=== PATIENT | female | born 1945 | race Caucasian/White ===

== ENCOUNTER → 2024-02-20 10:06 | Outpatient (REF) | payer MEDICARE, OTHER, SELFPAY | LOC: RAD 10:06 | PROVIDERS: ATTENDING PHYSICIAN Student in an Organized Health Care Education/Training Program | DX: R05.9 Cough, unspecified (principal) | CPT/HCPCS: 71046 ==

== ENCOUNTER → 2024-04-30 09:04 | Outpatient (REF) | payer MEDICARE, OTHER, SELFPAY | LOC: RAD 09:04 | PROVIDERS: ATTENDING PHYSICIAN Orthopaedic Surgery; FAMILY PHYSICIAN Physician Assistant Medical | DX: M25.562 Pain in left knee (principal) | CPT/HCPCS: 78315; A9503 ==

== ENCOUNTER 2024-07-26 18:35 | Emergency (ER) | payer MEDICARE, OTHER, SELFPAY ==
[2024-07-26 18:39] VITALS: BP 168/103
[2024-07-26 19:02] LABS: % Basophils 1.1 % (0-2); % Eosinophils 3.4 % (0-6); % Immature Granulocytes 0.5 % (0-0.5); % Lymphocytes 29.6 % (20.5-51.1); % Monocytes 8.9 % (1.7-9.3); % Neutrophils 56.5 % (42.2-75.2); Absolute Basophils 0.1 10^3/uL (0-0.2); Absolute Eosinophils 0.3 10^3/uL (0-0.7); Absolute Lymphocytes 2.3 10^3/uL (1.2-3.4); Absolute Monocytes 0.7 10^3/uL (0.1-0.6); Absolute Neutrophils 4.4 10^3/uL (1.4-6.5); Mean Corp Hgb Conc. 34.1 g/dL (33.0-37.0); Mean Corpuscular Hgb 33.7 pg (27.0-31.0); Mean Corpuscular Volume 98.6 fL (81.0-99.0); Mean Platelet Volume 9.1 fL (7.4-10.4); Nucleated Red Blood Cells % 0 %; Platelet Count 198 10^3/uL (130-400); Red Blood Cell Count 4.16 10^6/uL (4.20-5.40); Red Cell Dist. Width 12.2 % (11.5-14.5); Urine Albumin 1+ (Neg - Trace); Urine Bilirubin Negative (Negative); Urine Character Slightly Cloudy (Clear); Urine Color Yellow; Urine Glucose Negative (Negative); Urine Ketone Trace (Negative); Urine Leukocyte Trace (Negative); Urine Nitrite Positive (Negative); Urine Occult Blood 4+ (Negative); Urine Urobilinogen 1+ (Neg - 1+); White Blood Cell Count 7.8 10^3/uL (4.8-10.8)
[2024-07-26 19:07] LABS: Urine Bacteria Many (Negative); Urine Red Blood Cell >100 /HPF (0-2); Urine White Cell 0-2 /HPF (0-5)
[2024-07-26 19:14] LABS: ALT (SGPT) 28 U/L (0-35); AST (SGOT) 35 U/L (14-36); Albumin 4.6 g/dl (3.5-5.0); Alkaline Phosphatase 83 U/L (38-126); Blood Urea Nitrogen 18 mg/dl (7-17); Carbon Dioxide 23 mmol/L (22-30); Chloride 105 mmol/L (98-107); Glucose 99 mg/dl (70-99); Potassium 4.2 mmol/L (3.5-5.1); Sodium 139 mmol/L (135-145); Total Bilirubin 0.7 mg/dl (0.2-1.3); Total Protein 7.4 g/dl (6.3-8.2); eGFR > 60.00
[2024-07-26 19:53] VITALS: BMI 25.5
--- NOTE | 2024-07-26 20:26 | ED.GENMED ---
History of Present Illness
General
Chief Complaint: Flank Pain
Time Seen by Provider: 07/26/24 19:54
History of Present Illness
History of Present Illness:
78-year-old female presents to the emergency department for evaluation of sudden onset left flank pain that began 2 hours prior to arrival. Pain maximized upon arrival to the ED but has since resolved. She denies any symptoms at present. She did
have 2 episodes of vomiting previously. No hematuria. No prior history of kidney stone.
Past History
Past History
ED Past Medical History: Hypothyroidism
ED Past Surgical History: Orthopedic and Other (cataract surgery)
Social History
Tobacco: Non-smoker
Alcohol: None
Drug: None
Personal:
Living: with family
Employment: Retired
Family History
Family History: Other
Review of Systems
Review of Systems
Allergies reviewed?: Yes
All Other Systems: ROS reviewed and negative except as documented in HPI and ROS
Phy Exam
Physical Exam
Physical Exam:
GEN: Well appearing, NAD, WDWN
HEENT: Oral mucosa moist, no scleral icterus
Cardiac: Regular rate
Lung: No respiratory distress, no tachypnea
MSK: No gross deformity or injuries
Skin: Good color, no pallor or jaundice, no rashes
Neuro: AO x3, moves all extremities freely
Psych: Calm, cooperative
Course
Orders/Labs/Results
Orders:
Orders
07/26/24 18:52
CBC/With Diff [Complete Blood Count/With Diff] Urgent
Comprehensive Metabolic Panel Urgent
Urinalysis Reflex To Culture Urgent
Date Specimen was Collected: 07/26/24
Time Specimen was Collected: 18:41
Urine Microscopic Reflex Cult Urgent
Urine Culture Urgent
PHIL Source: U
Specimen Description:
Date Specimen was Collected: 07/26/24
Time Specimen was Collected: 18:41
07/26/24 19:58
CT Abd/pel Without Iv Or Oral Urgent
Comment:
Reason For Exam: L flank pain
Abnormal Lab Results
07/26/24
18:52
RBC 4.16 L 10^6/uL
(4.20-5.40)
MCH 33.7 H pg
(27.0-31.0)
Absolute Monos (auto) 0.7 H 10^3/uL
(0.1-0.6)
BUN 18 H mg/dl
(7-17)
Urine Ketones Trace A
(Negative)
Ur Occult Blood Reflex 4+ A
(Negative)
Urine Nitrite (Reflex) Positive A
(Negative)
Leukocyte Esterase Rfl Trace A
(Negative)
Urine RBC >100 A /HPF
(0-2)
Urine Bacteria (Reflex) Many A
(Negative)
Urine Albumin (Reflex) 1+ A
(Neg - Trace)
07/26/24 18:52
07/26/24 18:52
Vital Signs
Initial and Last Documented VS:
Initial Vital Signs
Temp Pulse Resp BP Pulse Ox
97.5 F 73 16 168/103 100
07/26/24 18:39 07/26/24 18:39 07/26/24 18:39 07/26/24 18:39 07/26/24 18:39
Last Documented Vital Signs
Temp Pulse Resp BP Pulse Ox
97.5 F 64 20 126/65 95
07/26/24 18:39 07/26/24 20:50 07/26/24 20:50 07/26/24 20:50 07/26/24 20:50
MDM/Problems Addressed
MDM/Problems Addressed:
Patient remained pain-free in the ED, most likely a passed kidney stone. Urinalysis shows large RBCs and bacteria but no white cells and she has no lower urinary tract voiding symptoms suggestive of acute UTI, will await culture no antibiotics
necessary at this time however would consider treatment if urine culture is consistent with UTI. Suitable for outpatient management
*Critical Care Note
Total Time (30-74mins, 75-104mins- exclusive of procedures): Not Applicable
ED Attending Note
-
Portions of this chart may have been created with voice recognition software.� Occasional wrong word or��sound alike� substitutions may have occurred due to the inherent limitations of voice recognition software.
Discharge Plan
Departure
Patient Disposition: Home (Routine Discharge)
Date of Disposition: 07/26/24
Time of Disposition: 21:39
Patient with high blood pressure during this ER visit?: No
Discharge Problem:
Acute left flank pain
Instructions: Kidney Stones (DC)
Prescriptions:
No Action
levothyroxine [Synthroid] 100 MCG tablet
100 mcg PO DAILY
rosuvastatin 5 MG tablet
5 mg PO QPM
Glucosamine Sulf-Chondroitin 1 EACH capsule
1 cap PO DAILY
Multi-Vitamins
1 tab PO DAILY
Aleve
2 tab PO DAILY
albuterol sulfate [ProAir HFA] 90 mcg/actuation Hfa Aerosol Inhaler
2 puff INHALATION Q4HPRN PRN (Reason: shortness of breath/cough) Qty: 90 0RF
Rx Instructions:
Dispense with spacer
Referrals:
Mayra Jules PA [Family Provider] -
Activity Restrictions/Additional Instructions:
Your urine sample had a large amount of bacteria, however this does not necessarily indicate a UTI. As you have no UTI symptoms, we will wait for your urine culture to result before starting antibiotics
Interventions
Interventions:
*Risk Screen - Suicide Last Done: 07/26/24 18:39
*General Assessment Last Done: 07/26/24 19:56
*Neglect/Abuse Screening Last Done: 07/26/24 18:39
ED- Fall Risk Assessment Last Done: 07/26/24 19:56
*ED COVID-19 Vaccine History Last Done: 07/26/24 19:56
*Nursing Disposition Last Done: 07/26/24 22:13
HB-Tjmxjo-Fkcsuzwbes Assessment Last Done: 07/26/24 19:56
ED-Female Genitourinary Assessment Last Done: 07/26/24 19:56
Discharge Date and Time
Discharge Date/Time: 07/26/24 22:13
Print Language: KINYARWANDA
[2024-07-26 20:50] VITALS: BP 126/65
== END 2024-07-26 22:13 | disposition home or self-care (01) ==
LOC: EMR 18:35
PROVIDERS: EMERGENCY PHYSICIAN Emergency Medicine; FAMILY PHYSICIAN Physician Assistant Medical
DX: R10.9 Unspecified abdominal pain (principal)
CPT/HCPCS: 99284; 74176; 80053; 81003; 81015; 85025; 87086

== ENCOUNTER → 2024-09-05 09:41 | Outpatient (REF) | payer MEDICARE, OTHER, SELFPAY | LOC: WDC 09:41 | PROVIDERS: ATTENDING PHYSICIAN Physician Assistant Medical; FAMILY PHYSICIAN Physician Assistant Medical | DX: Z78.0 Asymptomatic menopausal state (principal); Z12.31 Encounter for screening mammogram for malignant neoplasm of breast | CPT/HCPCS: 77063; 77067; 77080 ==

== ENCOUNTER → 2025-03-24 14:36 | Outpatient (REF) | payer MEDICARE, OTHER, SELFPAY | LOC: WDC 14:36 | PROVIDERS: ATTENDING PHYSICIAN Physician Assistant Medical | DX: R92.30 Dense breasts, unspecified (principal) | CPT/HCPCS: 76641 ==

== ENCOUNTER → 2025-04-01 11:25 | Outpatient (REF) | payer MEDICARE, OTHER, SELFPAY | LOC: RAD 11:25 | PROVIDERS: ATTENDING PHYSICIAN Physician Assistant Medical | DX: E03.9 Hypothyroidism, unspecified (principal) | CPT/HCPCS: 76536 ==

== ENCOUNTER 2025-04-20 10:25 | Emergency (ER) | payer MEDICARE, OTHER, SELFPAY ==
[2025-04-20 10:29] VITALS: BP 188/105
[2025-04-20 10:42] LABS: Hematocrit 43.7 % (37.0-47.0); Hemoglobin 14.9 g/dL (12.0-16.0); Mean Corp Hgb Conc. 34.1 g/dL (33.0-37.0); Mean Corpuscular Volume 98.6 fL (81.0-99.0); Nucleated Red Blood Cells % 0 %; Platelet Count 204 10^3/uL (130-400); Red Cell Dist. Width 11.9 % (11.5-14.5)
[2025-04-20 10:58] LABS: ALT (SGPT) 24 U/L (0-35); AST (SGOT) 33 U/L (14-36); Albumin 4.4 g/dl (3.5-5.0); Alkaline Phosphatase 95 U/L (38-126); Blood Urea Nitrogen 17 mg/dl (7-17); Calcium 9.6 mg/dl (8.4-10.2); Carbon Dioxide 20 mmol/L (22-30); Chloride 112 mmol/L (98-107); Glucose 103 mg/dl (70-99); Lipase 84 U/L (23-300); Potassium 4.7 mmol/L (3.5-5.1); Sodium 139 mmol/L (135-145); Total Protein 7.4 g/dl (6.3-8.2); eGFR > 60.00
[2025-04-20 11:11] VITALS: BMI 26.6
--- NOTE | 2025-04-20 12:21 | ED.GENMED ---
History of Present Illness
General
Chief Complaint: Abdominal Pain
Source: patient
Time Seen by Provider: 04/20/25 11:54
History of Present Illness
History of Present Illness:
79-year-old female with past medical history of hyperlipidemia and previous kidney stones presenting to the emergency department for evaluation of abdominal discomfort described to be suprapubic, nonradiating, constant sharp pain since this morning
accompanied with nausea and vomiting, nausea and vomiting have since resolved and the pain has subsided slightly without patient taking any medication. She states the pain feels very similar to previous episodes of kidney stones. Patient denies
other associated symptoms including fevers, chills, rigors, urinary frequency/urgency/dysuria or hematuria, bowel changes, back or flank pain, or any other concerns.
Emergency social history and surgical history both noncontributory
Past History
Past History
ED Past Medical History: Hypothyroidism
ED Past Surgical History: Orthopedic and Other (cataract surgery)
Social History
Tobacco: Non-smoker
Alcohol: None
Drug: None
Personal:
Living: with family
Employment: Retired
Family History
Family History: Other
Review of Systems
Review of Systems
All Other Systems: ROS reviewed and negative except as documented in HPI and ROS
Phy Exam
Physical Exam
Physical Exam:
GENERAL: Alert , in no apparent distress
EYE: clear conjunctiva b/l
HEAD: NCAT
ENT: o/p clr, mmm.
CARDIAC: Regular rate and rhythm .
LUNGS: Clear breath sounds bilaterally, no acute respiratory distress, no wheezes/rales/rhonchi
ABDOMEN: Soft, suprapubic and LLQ ttp, no r/g, no cvat
NEUROLOGICAL: Alert and oriented
SKIN: Warm and dry, skin intact.
MUSCULOSKELETAL: No edema, well perfused.
PSYCH: Normal and appropriate interaction.
Scores
Heart Failure Risk
Heart Failure Risk Score: Not Applicable
Heart Score for Chest Pain Patients
STEMI patient?: Not applicable
Withdrawal Assessment of Alcohol
Withdrawal Assessment Completed?: Not applicable
Course
Orders/Labs/Results
Orders:
Orders
04/20/25 10:35
Complete Blood Count/With Diff Urgent
Comprehensive Metabolic Panel Urgent
Lipase Urgent
04/20/25 12:05
CT Abd/pelvis W Iv Cont Urgent
Comment:
Reason For Exam: lower abd pain, hx kidney stones
04/20/25 12:17
Urinalysis Reflex To Culture Urgent
Date Specimen was Collected: 04/20/25
Time Specimen was Collected: 12:16
Comment: Clean catch
Urine Microscopic Reflex Cult Urgent
Urine Culture Urgent
PHIL Source: U
Specimen Description:
Date Specimen was Collected: 04/20/25
Time Specimen was Collected: 12:16
04/20/25 12:18
Ketorolac [Toradol] 15 mg IV NOW STA
Ondansetron Injectable [Zofran] 4 mg IV NOW STA
Abnormal Lab Results
04/20/25 04/20/25
10:35 12:17
MCH 33.6 H pg
(27.0-31.0)
Absolute Monos (auto) 0.7 H 10^3/uL
(0.1-0.6)
Lymphocytes % 19.6 L %
(20.5-51.1)
Chloride 112 H mmol/L
(98-107)
Carbon Dioxide 20 L mmol/L
(22-30)
Glucose 103 H mg/dl
(70-99)
Total Bilirubin 1.4 H mg/dl
(0.2-1.3)
Urine Ketones 2+ A
(Negative)
Ur Occult Blood Reflex 2+ A
(Negative)
Urine Bilirubin 1+ A
(Negative)
Urine Urobilinogen 2+ A
(Neg - 1+)
Leukocyte Esterase Rfl 2+ A
(Negative)
Urine RBC 11-15 A /HPF
(0-2)
Urine Bacteria (Reflex) Few A
(Negative)
Urine Albumin (Reflex) 2+ A
(Neg - Trace)
04/20/25 10:35
04/20/25 10:35
Vital Signs
Initial and Last Documented VS:
Initial Vital Signs
Temp Pulse Resp BP Pulse Ox
97.7 F 78 18 188/105 99
04/20/25 10:29 04/20/25 10:29 04/20/25 10:29 04/20/25 10:29 04/20/25 10:29
Last Documented Vital Signs
Temp Pulse Resp BP Pulse Ox
97.7 F 69 17 128/70 98
04/20/25 10:29 04/20/25 13:33 04/20/25 13:33 04/20/25 13:33 04/20/25 13:33
MDM/Problems Addressed
Differential Diagnosis Includes:
Diverticulitis
Renal/Ureteral colic
UTI
Appendicitis
Colitis
MDM/Problems Addressed:
79-year-old female presenting to the ER for evaluation of lower abdominal pain that began earlier this morning accompanied with nausea and vomiting. Currently no other associated symptoms and notes symptoms are much more mild now. She initially
declined anything for her symptoms. Will obtain CT and urine in addition to the labs that were initiated on arrival. Labs otherwise reassuring. Disposition pending.
*Radiology
Radiology exam reviewed: radiology read reviewed
*Pulse Oximetry
SaO2: 99
Oxygen Mode of Delivery: Room air
Patient hypoxic: no
*Critical Care Note
Total Time (30-74mins, 75-104mins- exclusive of procedures): Not Applicable
Patient Management
Discussion with other providers: PCP
Escalation/DeEscalation of care consider admission/obs:
CT scan shows moderate colitis and diverticulosis. Given these findings we will treat patient with Augmentin. She reports much improved symptoms following medications provided. I did notify patient's primary care provider via [facility] text to help
ensure close follow-up this coming week. Patient advised on BRAT diet. Aware of return precautions to the emergency department.
ED Attending Note
-
Portions of this chart may have been created with voice recognition software.� Occasional wrong word or��sound alike� substitutions may have occurred due to the inherent limitations of voice recognition software.
Discharge Plan
Departure
Patient Disposition: Home (Routine Discharge)
Date of Disposition: 04/20/25
Time of Disposition: 14:04
Patient with high blood pressure during this ER visit?: Yes
Discharge Problem:
Colitis
Instructions: Colitis (DC)
Prescriptions:
New
amoxicillin-pot clavulanate 875-125 mg tablet
1 tab PO BID Qty: 20 0RF
No Action
levothyroxine [Synthroid] 100 MCG tablet
100 mcg PO DAILY
rosuvastatin 5 MG tablet
5 mg PO QPM
Glucosamine Sulf-Chondroitin 1 EACH capsule
1 cap PO DAILY
Multi-Vitamins
1 tab PO DAILY
Aleve
2 tab PO DAILY
albuterol sulfate [ProAir HFA] 90 mcg/actuation Hfa Aerosol Inhaler
2 puff INHALATION Q4HPRN PRN (Reason: shortness of breath/cough) Qty: 90 0RF
Rx Instructions:
Dispense with spacer
Referrals:
Mayra Jules PA [Family Provider, Family Practice]
Interventions
Interventions:
*Risk Screen - Suicide Last Done: 04/20/25 10:29
*General Assessment Last Done: 04/20/25 10:29
*Neglect/Abuse Screening Last Done: 04/20/25 11:13
*ED- Fall Risk Assessment Last Done: 04/20/25 11:12
*ED COVID-19 Vaccine History Last Done: 04/20/25 11:12
*ED Influenza Vaccine History Last Done: 04/20/25 11:12
*Nursing Disposition Last Done: 04/20/25 14:17
DP-Xhmtsw-Avyzevboyi Assessment Last Done: 04/20/25 11:12
Discharge Date and Time
Discharge Date/Time: 04/20/25 14:21
Print Language: KOREAN
[2025-04-20] MEDS: ZOFRAN 4 MG IV (12:25)
[2025-04-20] MEDS: TORADOL 15 MG IV (12:25)
[2025-04-20 13:01] LABS: Urine Character Clear (Clear)
[2025-04-20 13:07] LABS: Urine White Cell 0-2 /HPF (0-5)
[2025-04-20 13:33] VITALS: BP 128/70
== END 2025-04-20 14:21 | disposition home or self-care (01) ==
LOC: EMR 10:25
PROVIDERS: Physician Assistant Medical; EMERGENCY PHYSICIAN Student in an Organized Health Care Education/Training Program; FAMILY PHYSICIAN Physician Assistant Medical
DX: K52.9 Noninfective gastroenteritis and colitis, unspecified (principal); K57.30 Diverticulosis of large intestine without perforation or abscess without bleeding; E78.5 Hyperlipidemia, unspecified; E03.9 Hypothyroidism, unspecified
CPT/HCPCS: 96374; 96375; 99284; 74177; 80053; 81003; 81015; 83690; 85025; 87086; Q9967